=== PATIENT | male | born 1960 | race Caucasian/White ===

== ENCOUNTER 2016-11-04 13:00 | Emergency (ER) | payer BC ==
--- NOTE | 2016-11-04 13:41 | EDM.PDOC ---
ED HPI GENERAL MEDICAL PROBLEM - General Chief Complaint: Lower Extremity Injury/Pain Stated Complaint: LEFT LEG PAIN Time Seen by Provider: 11/04/16 13:30 - History of Present Illness INITIAL COMMENTS - FREE TEXT/NARRATIVE: HISTORY AND PHYSICAL: History of present illness: The patient is a 56-year-old male with a history of hypertension and non-insulin -dependent diabetes who presents for reevaluation of his left leg due to pain and swelling. The patient was seen at [facility] on October 30 because he was having several days of pain in his left leg which started at his medial knee and went to the medial thigh. He had similar 2 years ago and was told it was a superficial vein. He had a venous Doppler performed on that visit on October 30 which indicated no evidence of DVT but a small amount of occlusive thrombus within the superficial food service coordinator vein off of the posterior tibial vein. He was told that he should monitor this at it the pain recurred he should return. He was seen again at [facility] ER yesterday but they had no ultrasound ability so he was advised to take aspirin and return if the pain did not improve. He says he feels that the pain is traveling up his inner thigh and that there is redness now and there is no deep calf tenderness and any neurosensory changes in his leg. He has had no trauma to the leg and he has no systemic complaints of fever chills chest pain shortness of breath vomiting or abdominal pain area Please note when this happened 2 years ago patient was not treated as a DVT but it was only a superficial vein. Review of systems: As per history of present illness and below otherwise all systems reviewed and negative. Past medical history: As per history of present illness and as reviewed below otherwise noncontributory. Surgical history: As per history of present illness and as reviewed below otherwise noncontributory. Social history: No reported history of drug or alcohol abuse. Family history: As per history of present illness and as reviewed below otherwise noncontributory. Physical exam: Gen.: Well-developed overweight man who is nontoxic and clearly and easily. HEENT: Atraumatic, normocephalic, negative for conjunctival pallor or scleral icterus, mucous membranes moist, throat clear, neck supple, nontender, trachea midline. Lungs: Clear to auscultation, breath sounds equal bilaterally, chest nontender. Heart: S1S2, regular rate and rhythm no overt murmurs Abdomen: Soft, nondistended, nontender. NABS. Pelvis: Stable nontender. Genitourinary: Deferred. Rectal: Deferred. Extremities: Atraumatic with full range of motion of all extremities and no bony defects, at the medial aspect of the left knee and the left thigh there is a palpable thickened vein appreciated which is tender and has some pinkish ill- defined erythema. There is no deep vein tenderness appreciated in the popliteal fossa or in the calf. There is no Groin tenderness on the left. There is dependent edema bilaterally 2+. Neurovascular unremarkable. Neuro: Awake, alert, oriented. Cranial nerves II through XII unremarkable. Cerebellum unremarkable. Motor and sensory unremarkable throughout. Exam nonfocal. Diagnostics: Venous Doppler of left lower extremity Therapeutics: Patient defers pain meds at this time I discussed with the patient all testing results and the need to follow-up with primary care. I've also advised him that he needs to elevate his legs after activities or prolonged standing as he does have a lot of dependent edema. I've also told him that it would be beneficial for him to get NOHELIA hose or support hose to assist with these venous stasis. I will give him a prescription for antibiotics as he is diabetic and he is concerned about the redness of the superficial phlebitis Impression: Superficial thrombophlebitis of left leg Definitive disposition and diagnosis as appropriate pending reevaluation and review of above. left inner thigh Pain Score (Numeric/FACES): 3 - Related Data Allergies Allergy/AdvReac Type Severity Reaction Status Date / Time No Known Allergies Allergy Verified 11/04/16 13:17 Home Meds: Home Meds Aspirin 81 mg PO DAILY 11/04/16 [History] Gemfibrozil 600 mg PO BID 11/04/16 [History] Hydrochlorothiazide 25 mg PO DAILY 11/04/16 [History] Omeprazole 40 mg PO DAILY 11/04/16 [History] Simvastatin [Zocor] 40 mg PO BEDTIME 11/04/16 [History] Valsartan [Diovan] 160 mg PO DAILY 11/04/16 [History] metFORMIN HCl [Metformin HCl] 500 mg PO BID 11/04/16 [History] Past Medical History - Past Health History Medical/Surgical History: Denies Medical/Surgical History HEENT History: Reports: Impaired Vision Other HEENT History: wears glasses Cardiovascular History: Reports: High Cholesterol, Hypertension Gastrointestinal History: Reports: GERD Endocrine/Metabolic History: Reports: Diabetes, Type II Social & Family History - Family History Family Medical History: Noncontributory - Tobacco Use Smoking Status *Q: Never Smoker - Recreational Drug Use Recreational Drug Use: No Review of Systems - Review of Systems Review Of Systems: ROS reveals no pertinent complaints other than HPI. ED EXAM, GENERAL - Physical Exam Exam: See Below (See dictation) Course - Vital Signs Last Recorded V/S: Last Vital Signs Temp 36.5 C 11/04/16 13:18 Pulse 96 11/04/16 13:18 Resp 18 11/04/16 13:18 BP 120/70 11/04/16 13:18 Pulse Ox 93 L 11/04/16 13:18 - Orders/Labs/Meds Orders: Active Orders 24 hr Category Date Time Status Venous Doppler Lwr Ext Lt [US] Stat Exams 11/04/16 13:37 Taken Departure - Departure Time of Disposition: 15:24 Disposition: Home, Self-Care 01 Condition: Good Clinical Impression: Superficial thrombophlebitis of left leg - Discharge Information Forms: ED Department Discharge Additional Instructions: The following information is given to patients seen in the emergency department who are being discharged to home. This information is to outline your options for follow-up care. We provide all patients seen in our emergency department with a follow-up referral. The need for follow-up, as well as the timing and circumstances, are variable depending upon the specifics of your emergency department visit. If you don't have a primary care physician on staff, we will provide you with a referral. We always advise you to contact your personal physician following an emergency department visit to inform them of the circumstance of the visit and for follow-up with them and/or the need for any referrals to a consulting specialist. The emergency department will also refer you to a specialist when appropriate. This referral assures that you have the opportunity for followup care with a specialist. All of these measure are taken in an effort to provide you with optimal care, which includes your followup. Under all circumstances we always encourage you to contact your private physician who remains a resource for coordinating your care. When calling for followup care, please make the office aware that this follow-up is from your recent emergency room visit. If for any reason you are refused follow-up, please contact the [facility] emergency department at and ask to speak to the emergency department charge nurse. [facility] Primary care- Internal Medicine and Family [address] [address] Please try to elevate the legs as much as possible as we discussed. Research getting some support hose or NOHELIA hose to help with the swelling of her legs and further phlebitis development. Use heat or ice to the area for comfort. You can use [id number] ibuprofen or Tylenol for pain. Please taken Biaxin as directed until they are finished. Please call and schedule follow-up appointment with your clinic physician or one of ours next week and return to ER as needed and as discussed - My Orders Last 24 Hours: My Active Orders 11/04/16 13:37 Venous Doppler Lwr Ext Lt [US] Stat - Assessment/Plan Last 24 Hours: My Active Orders 11/04/16 13:37 Venous Doppler Lwr Ext Lt [US] Stat
[2016-11-04 15:59] VITALS: BP 118/63
--- NOTE | 2016-11-06 10:45 | US ---
EXAM DATE: 11/04/16 PATIENT'S AGE: 56 Patient: RICHA JONAS Facility: [place], [place] Site . Site : [id number] Study: US Extremity Venous left [id number] 2:52:20 PM Ordering Physician: Mao Horan Final Report: INDICATION: Left upper thigh pain and swelling. TECHNIQUE: Ultrasound venous duplex lower left extremity. Compression venous exam was performed using willis-scale, color Doppler, and spectral Doppler analysis. COMPARISON: None. FINDINGS: Sonographic imaging demonstrates the left common femoral, deep femoral, superficial femoral, popliteal, posterior tibial and greater saphenous and the contralateral right popliteal and posterior tibial veins to be fully compressible with normal color Doppler blood flow. Thrombus in the superficial veins in the left inner thigh. IMPRESSION: No DVT identified in the left lower extremity. Thrombus in superficial veins in the left inner thigh. Dictated by Eldon Hurley MD @ 11/04/2016 3:08:52 PM Dictated by: Eldon Hurley MD @ 11/04/2016 15:09:10 (Electronic Signature) Report Signed by Proxy. [facility]ENTERForrest
== END 2016-11-04 16:00 | disposition home or self-care (01) ==
LOC: MW.ED 13:00
DX: I80.02 Phlebitis and thrombophlebitis of superficial vessels of left lower extremity (principal); E78.00 Pure hypercholesterolemia, unspecified; I10 Essential (primary) hypertension; K21.9 Gastro-esophageal reflux disease without esophagitis; E11.9 Type 2 diabetes mellitus without complications; Z79.82 Long term (current) use of aspirin; Z79.84 Long term (current) use of oral hypoglycemic drugs; Z79.899 Other long term (current) drug therapy
CPT/HCPCS: 93971-26-LT; 93971-LT; 99283; 99283-25